=== PATIENT | female | born 1995 | race Caucasian/White ===

== ENCOUNTER 2016-03-24 12:49 | Emergency (ER) | payer OTHER ==
[~2016-03-24] VITALS: Ht 157.5 cm; Wt 78.0 kg
[~2016-03-24 12:49] MED LIST: ACET325T33 PO
[2016-03-24 13:29] VITALS: Ht 157.5 cm; Wt 78.0 kg
[2016-03-24] MEDS ORDERED: SOD CHLORIDE 0.9% 1,000 ML IV STA (15:26)
[2016-03-24] MEDS ORDERED: ONDANSETRON 4 MG INJ IV STA (15:26)
[2016-03-24] MEDS ORDERED: ACETAMINOPHEN 500 MG TAB PO STA (15:27)
[2016-03-24 15:57] LABS: BASOPHILS % 0.4 % (0.0-2.0); EOSINOPHILS % 0.2 % (0.0-7.0); HEMATOCRIT 38.9 % (37.0-47.0); HEMOGLOBIN 13.2 g/dl (12.0-16.0); LYMPHOCYTES # 0.6 10^3/ul (0.8-2.9); LYMPHOCYTES % 5.2 % (15.0-51.0); MEAN CORPUSCULAR HEMOGLOBIN 28.9 pg (29.0-33.0); MEAN CORPUSCULAR VOLUME 84.8 fl (82.0-101.0); MEAN PLATELET VOLUME 8.6 fl (7.4-10.4); MONOCYTE # 0.6 10^3/ul (0.3-0.9); MONOCYTES % 5.7 % (0.0-11.0); NEUTROPHILS % 88.5 % (39.0-77.0); PLATELET COUNT 199 10^3/UL (140-440); RED BLOOD COUNT 4.59 10^6/ul (4.20-5.40); UNCORRECTED WBC 11.3 10^3/ul (4.8-10.8); WHITE BLOOD COUNT 11.3 10^3/ul (4.8-10.8)
[2016-03-24 15:58] LABS: CONDITION 1
[2016-03-24 16:26] LABS: ALBUMIN 4.1 g/dl (3.3-4.9)
[2016-03-24 16:27] LABS: POTASSIUM 3.6 mmol/L (3.5-5.1)
[2016-03-24 16:29] LABS: ALBUMIN/GLOBULIN RATIO 1.17; BILIRUBIN,INDIRECT 0.5 mg/dl (0-1.1); BILIRUBIN,TOTAL 0.5 mg/dl (0.2-1.3); CREATININE 0.46 mg/dl (0.44-1.00); TOTAL PROTEIN 7.6 g/dl (6.1-8.1)
[2016-03-24 16:30] LABS: CALCIUM 9.3 mg/dl (8.4-10.2)
[2016-03-24 16:32] LABS: ADD UMIC YES; URINE BILIRUBIN (Dip) 1+ (NEGATIVE); URINE BLOOD (Dip) 2+ (NEGATIVE); URINE COLOR YELLOW (YELLOW); URINE GLUCOSE (Dip) NEGATIVE (NEGATIVE); URINE KETONES (Dip) 3+ (NEGATIVE); URINE LEUKOCYTE ESTERASE (Dip) TRACE (NEGATIVE); URINE NITRITE (Dip) NEGATIVE (NEGATIVE); URINE TOTAL PROTEIN (Dip) 1+ (NEGATIVE); URINE UROBILINOGEN (Dip) 1.0 E.U./dL (0.1-1.0)
[2016-03-24 16:43] LABS: ICTOTEST NEGATIVE (NEGATIVE)
[2016-03-24 16:45] LABS: BACTERIA,URINE FEW; SQUAMOUS EPITHELIAL CELL,UR FEW; URINE RBCS 0-2 /HPF (0)
[2016-03-24 18:04] VITALS: BP 101/76; PULSE 96; RESP 14; TEMP 98.5
[2016-03-24] MEDS ORDERED: METO10TA92 PO (18:04)
[2016-03-24] MEDS ORDERED: ACET325T33 PO (18:04)
--- NOTE | 2016-03-24 18:09 | ERD ---
ER Documentation Chief Complaint Date/Time DATE: 03/24/16 TIME: 18:05 Chief Complaint AP, nausea and vomiting 17 weeks . HPI Patient is a 21-year-old female she is 17 weeks she is . She developed generalized abdominal pain last night she describes the pain as a ripping pressure sensation. She has had nonbilious nonbloody nausea and vomiting for 1 day, she vomited fluid 2 times. She had diarrhea that started last night, and some nonbloody watery diarrhea. She has no UTI symptoms no cough no sore throat no vaginal bleeding no pelvic pain. Doctor is Dr. Del Toro. No past medical history no allergies no medication ROS All systems reviewed and are negative except as per history of present illness. Medications Home Meds Active Scripts Metoclopramide* (Reglan*) 10 Mg Tablet, 10 MG PO Q6 Y for NAUSEA AND/OR VOMITING , #10 TAB Prov:ELMA HICKMAN DO 03/24/16 Acetaminophen* (Tylenol*) 325 Mg Tablet, 2 TAB PO Q8 Y for PAIN AND OR ELEVATED TEMP, #20 TAB Prov:ELMA HICMKAN DO 03/24/16 Acetaminophen* (Tylenol*) 325 Mg Tablet, 2 TAB PO Q8 Y for PAIN AND OR ELEVATED TEMP, #20 TAB Prov:KARMA HADDAD MD 01/29/16 Allergies Allergies: Coded Allergies: No Known Drug Allergy (Verified Allergy, Unknown, 11/26/15) PMhx/Soc History of Surgery: Yes (TONSILLECTOMY; CHOLEY) Anesthesia Reaction: No Hx Neurological Disorder: No Hx Respiratory Disorders: No Hx Cardiac Disorders: No Hx Psychiatric Problems: No Hx Miscellaneous Medical Probl: No Hx Alcohol Use: No Hx Substance Use: No Hx Tobacco Use: No Physical Exam Vitals Vital Signs Date Time Temp Pulse Resp B/P Pulse Ox O2 Delivery O2 Flow Rate FiO2 03/24/16 18:04 98.5 96 14 101/76 98 03/24/16 13:29 97.9 103 18 100/60 100 Physical Exam Const: [] Head: Atraumatic Eyes: Normal Conjunctiva ENT: Normal External Ears, Nose and Mouth. Neck: Full range of motion..~ No meningismus. Resp: Clear to auscultation bilaterally Cardio: Regular rate and rhythm, no murmurs Abd: Soft, non tender, non distended. Normal bowel sounds Skin: No petechiae or rashes Back: No midline or flank tenderness Ext: No cyanosis, or edema Neur: Awake and alert Psych: Normal Mood and Affect Result Diagram: 03/24/16 1533 03/24/16 1533 Results 24 hrs Laboratory Tests Test 03/24/16 15:33 Alanine Aminotransferase (ALT/SGPT) 27IU/L Albumin 4.1g/dl Albumin/Globulin Ratio 1.17 Alkaline Phosphatase 69IU/L Anion Gap 19 Aspartate Amino Transf (AST/SGOT) 24IU/L Basophils # 0.010^3/ul Basophils % 0.4% Blood Morphology Comment Blood Urea Nitrogen 8mg/dl Calcium Level 9.3mg/dl Carbon Dioxide Level 23mmol/L Chloride Level 101mmol/L Creatinine 0.46mg/dl Direct Bilirubin 0.00mg/dl Eosinophils # 0.010^3/ul Eosinophils % 0.2% Globulin 3.50g/dl Glucose Level 93mg/dl Hematocrit 38.9% Hemoglobin 13.2g/dl Indirect Bilirubin 0.5mg/dl Lipase 26U/L Lymphocytes # 0.610^3/ul Lymphocytes % 5.2% Mean Corpuscular Hemoglobin 28.9pg Mean Corpuscular Hemoglobin Concent 34.0g/dl Mean Corpuscular Volume 84.8fl Mean Platelet Volume 8.6fl Monocytes # 0.610^3/ul Monocytes % 5.7% Neutrophils # 10.010^3/ul Neutrophils % 88.5% Nucleated Red Blood Cells # 0.010^3/ul Nucleated Red Blood Cells % 0.0/100WBC Platelet Count 67832^3/UL Potassium Level 3.6mmol/L Red Blood Count 4.5910^6/ul Red Cell Distribution Width 14.0% Sodium Level 139mmol/L Total Bilirubin 0.5mg/dl Total Protein 7.6g/dl Urine Bacteria FEW Urine Bilirubin 1+ Urine Clarity SLIGHTLY CLOUDY Urine Color YELLOW Urine Glucose NEGATIVE% Urine Hemoglobin 2+ Urine Ictotest NEGATIVE Urine Ketones 3+ Urine Leukocyte Esterase TRACE Urine Microscopic RBC 0-2/HPF Urine Microscopic WBC 0-2/HPF Urine Nitrite NEGATIVE Urine Specific [place] >=1.030 Urine Squamous Epithelial Cells FEW Urine Total Protein 1+ Urine Urobilinogen 1.0 E.U./dL Urine pH 5.5 White Blood Count 11.310^3/ul Current Medications Medications (Trade) Dose Ordered Sig/Shyam Route PRN Reason Start Time Stop Time Status Last Admin Dose Admin Sodium Chloride (NS) 1,000 ml @ 1,000 mls/hr Q1H STAT IV 03/24/16 15:26 03/24/16 16:25 DC 03/24/16 15:57 Ondansetron HCl (Zofran Inj) 4 mg ONCE STAT IV 03/24/16 15:26 03/24/16 15:27 DC 03/24/16 15:56 Acetaminophen (Tylenol Tab) 1,000 mg ONCE STAT PO 03/24/16 15:27 03/24/16 15:28 DC 03/24/16 15:56 Procedures/MDM We gave her nausea medication IV fluids and Tylenol and she felt better and she appeared better. Mild leukocytosis is likely from the stress reaction of the vomiting and diarrhea. Her labs are otherwise normal so I doubt cholangitis cholecystitis or appendicitis or diverticulitis that she does not have abdominal tenderness to palpation. This is likely a viral gastroenteritis as she has nausea vomiting and diarrhea. Urine did show 3+ ketones and high specific gravity consistent with dehydration and we did give her IV fluids. There was no nitrates or white blood cells but there was trace leukocyte Estrace so we will send for urine culture but she had no UTI symptoms I did not give her antibiotics. Less likely be cholangitis cholecystitis choledocholithiasis cholecystitis diverticulitis small bowel obstruction or appendicitis or pyelonephritis or UTI. She did not have any pelvic pain or vaginal bleeding so I did not do a OB ultrasound. To follow with her PCP and tennis desk team member in the ED precautions discussed. Departure Diagnosis: Primary Impression: Abdominal pain Abdominal location: generalized Qualified Code: R10.84 - Generalized abdominal pain Additional Impressions: Nausea vomiting and diarrhea Weeks of gestation: 17 weeks Qualified Code: Z3A.17 - 17 weeks gestation of Dehydration Condition: Stable Patient Instructions: Diet, Vomiting Or Diarrhea [6Yr-Adult], Abdominal Pain, Early , Gastroenteritis, Viral (6Y-Adult) Referrals: COMMUNITY CLINICS YOU HAVE RECEIVED A MEDICAL SCREENING EXAM AND THE RESULTS INDICATE THAT YOU DO NOT HAVE A CONDITION THAT REQUIRES URGENT TREATMENT IN THE EMERGENCY DEPARTMENT. FURTHER EVALUATION AND TREATMENT OF YOUR CONDITION CAN WAIT UNTIL YOU ARE SEEN IN YOUR DOCTORS OFFICE WITHIN THE NEXT 1-2 DAYS. IT IS YOUR RESPONSIBILITY TO MAKE AN APPOINTMENT FOR FOLOW-UP CARE. IF YOU HAVE A PRIMARY DOCTOR --you should call your primary doctor and schedule an appointment IF YOU DO NOT HAVE A PRIMARY DOCTOR YOU CAN CALL OUR PHYSICIAN REFERRAL HOTLINE AT IF YOU CAN NOT AFFORD TO SEE A PHYSICIAN YOU CAN CHOSE FROM THE FOLLOWING [facility] [address] [facility] [address] [facility] [address] [facility] [address] [facility] [address] [facility]. [facility] [address] [facility]. [facility] YOU HAVE RECEIVED A MEDICAL SCREENING EXAM AND THE RESULTS INDICATE THAT YOU DO NOT HAVE A CONDITION THAT REQUIRES URGENT TREATMENT IN THE EMERGENCY DEPARTMENT. FURTHER EVALUATION AND TREATMENT OF YOUR CONDITION CAN WAIT UNTIL YOU ARE SEEN IN YOUR DOCTORS OFFICE WITHIN THE NEXT 1-2 DAYS. IT IS YOUR RESPONSIBILITY TO MAKE AN APPOINTMENT FOR FOLOW-UP CARE. IF YOU HAVE A PRIMARY DOCTOR --you should call your primary doctor and schedule and appointment IF YOU DO NOT HAVE A PRIMARY DOCTOR YOU CAN CALL OUR PHYSICIAN REFERRAL HOTLINE AT . IF YOU CAN NOT AFFORD TO SEE A PHYSICIAN YOU CAN CHOSE FROM THE FOLLOWING [facility] IN[facility]IONS: [facility] [address] [place] [address] [facility] [address] [place] [address] [facility] [address] [place] [address] ELMA HICKMAN DO Mar 24, 2016 18:09
== END 2016-03-24 18:11 | disposition home or self-care (01) ==
LOC: FTE 12:49
DX: O26.892 Other specified pregnancy related conditions, second trimester (principal); R10.84 Generalized abdominal pain; E86.0 Dehydration; O99.284 Endocrine, nutritional and metabolic diseases complicating childbirth; Z3A.17 17 weeks gestation of pregnancy
CPT/HCPCS: 36415; 80053; 81001; 83690; 85025; 87086; 96374; J2405; J7030; Z7502; Z7610; 81003

== ENCOUNTER 2018-09-20 18:20 | Inpatient (IN) | payer MEDICAID, OTHER ==
[~2018-09-20] VITALS: Ht 157.5 cm; Wt 89.6 kg
[~2018-09-20 18:20] MED LIST changes: +METO10TA92 PO
[2018-09-20 19:00] VITALS: Ht 157.5 cm; Wt 89.6 kg
[2018-09-20 19:20] VITALS: BP 108/55; PULSE 110; RESP 18
[2018-09-21] MEDS ORDERED: CEFAZOLIN 2 GM/50 ML (PMX) 50 ML IVPB STA (00:11)
[2018-09-21] MEDS: LACTATED RINGER'S 1,000 ML IV SCH ×4 (01:03→19:06)
[2018-09-21] MEDS: BETAMET NA PHOS/AC(6 MG/ML) 2 ML INJ SYG IM SCH (02:06)
[2018-09-21] MEDS ORDERED: ACETAMINOPHEN 325 MG TAB PO PRN (03:00)
[2018-09-21] MEDS ORDERED: AL HYDROX/MG HYDROX/SIMETH 30 ML CUP PO PRN (03:00)
[2018-09-21] MEDS ORDERED: NIFEdipine 10 MG CAP PO ONE (03:00)
--- NOTE | 2018-09-21 05:47 | TRIAGE ---
OB Triage Datetime Report Generated by CPN: 09/21/2018 05:46 Datetime: 09/21/2018 04:12 Stage of : Antepartum Maternal Assessment Level of Consciousness: Keenly Alert, Responsive Headache: Denies Blurred Vision: No Respiratory Effort: Unlabored Breath Sounds, Left: Clear and Equal Breath Sounds, Right: Clear and Equal Nausea/Vomiting: Denies RUQ Epigastric Pain: Denies Facial Edema: None Labor Evaluation Frequency: 4-6 Monitor Mode: External Duration (sec)2399: 50-60 Quality: Mild Pattern: Normal: <= 5 Contractions in 10 Minutes Resting Tone [place]: Relaxed Pain Assessment Pain Scale: 2 Pain Presence: Intermittent Pain Type: Dull; Ache Pain Goal: 2 Vaginal Exam Membrane Status: Intact Datetime: 09/21/2018 02:59 Stage of : Antepartum Maternal Assessment Level of Consciousness: Keenly Alert, Responsive Headache: Denies Blurred Vision: No Respiratory Effort: Unlabored Breath Sounds, Left: Clear and Equal Breath Sounds, Right: Clear and Equal Nausea/Vomiting: Denies RUQ Epigastric Pain: Denies Labor Evaluation Frequency: 5 Monitor Mode: External Duration (sec)2399: 50-60 Quality: Moderate Pattern: Normal: <= 5 Contractions in 10 Minutes Resting Tone [place]: Relaxed Pain Assessment Pain Scale: 4 Pain Presence: Intermittent Pain Type: Cramping; Dull; Ache Pain Location: Abdomen Pain Goal: 2 Pain Relief Measures: Comfort Measures Vaginal Exam Membrane Status: Intact Datetime: 09/21/2018 01:49 Stage of : Antepartum Maternal Assessment Level of Consciousness: Keenly Alert, Responsive DTR's/Clonus: DTRs 2+ Headache: Denies Blurred Vision: No Respiratory Effort: Unlabored Breath Sounds, Left: Clear and Equal Breath Sounds, Right: Clear and Equal Nausea/Vomiting: Denies RUQ Epigastric Pain: Denies Facial Edema: None Labor Evaluation Frequency: 3-6 Monitor Mode: External Duration (sec)2399: 50-60 Quality: Moderate Pattern: Normal: <= 5 Contractions in 10 Minutes Resting Tone [place]: Relaxed Pain Assessment Pain Scale: 5 Pain Presence: Intermittent Pain Type: Cramping; Dull; Ache Pain Location: Abdomen Pain Goal: 2 Pain Relief Measures: Comfort Measures Pain Assessment Comments: MOTHER OF PT AT BEDSIDE Vaginal Exam Membrane Status: Intact Datetime: 09/21/2018 00:05 Monitor Mode: External Datetime: 09/20/2018 23:39 Vaginal Exam Membrane Status: Intact Datetime: 09/20/2018 19:53 Time of Arrival: 09/20/2018 17:49 EGA: 33.0 Arrived By: Ambulatory Arrived From: Home Chief Complaint: sent from the clinic for ultrasound Movement: Present Contractions: Denies/Absent Rupture of Membranes: Denies Vaginal Bleeding: None Vaginal Discharge: Denies Recent Sexual Intercouse: Denies Abdominal Trauma: Not Applicable Patient Complaints: None Time Provider Notified: 09/20/2018 19:25 Provider Notified: hadadian Initial Plan: EFMiguel Angel, MELINDA MICHAEL
[2018-09-21] MEDS: NIFEdipine 10 MG CAP PO SCH ×4 (08:59→22:11)
[2018-09-21] MEDS ORDERED: INSULIN ASPART [NOVOLOG] 3 ML PEN SC SCH (12:00)
[2018-09-21] MEDS ORDERED: GLUCOSE GEL 15 GRAM TUBE BUCCAL PRN (17:00)
[2018-09-21] MEDS ORDERED: GLUCOSE GEL 15 GRAM TUBE PO PRN ×2 (17:00)
[2018-09-21] MEDS ORDERED: DEXTROSE 50% 50 ML SYRINGE IV PRN ×2 (17:00)
[2018-09-21] MEDS ORDERED: GLUCAGON 1 MG INJ IM PRN (17:00)
--- NOTE | 2018-09-21 19:26 | CONS ---
Consultation Date/Type/Reason Admit Date/Time Sep 20, 2018 at 23:25 Date of Consultation: Sep 21, 2018 Type of Consult Medicine Reason for Consultation Requested by Dr. Martinez to certified alcohol and drug counselor mother regarding anticipated course and outcomes encountered with at 33 wks of twin gestation complicated by gestational diabetes. Mother is a 23 yo [id number] with EDC 11/08/2018 (EGA 33 1/7 wks). complicated by monochorionic-diamniotic twin gestation and gestational diabetes, diet-controlled. Mother presented 09/20 in labor with intact membranes. Has received Ancef X 1, Procardia q 4 hrs, and Betamethasone X 1. BPP each twin 10/26. Met with mother and discussed very high survival rate at this gestation. Explained that admission to NICU required and initial course may be complicated by respiratory insufficiency requiring some form of assistance especially in view of maternal diabetes despite having received full course of steroids. Reviewed issues regarding feedings and early requirement for IV nutrition slowly replaced with enteral gavage feedings and finally nipple feedings. Briefly discussed apnea of prematurity and requirement for cardiorespiratory stability prior to discharge. Discussed briefly infection and possibility of antibiotics. Discussed possibility of prison subtle neurologic disturbances which are highly variable at this gestation. Mother appeared to understand. Assured mother of availability should further questions arise. Date/Time of Note DATE: 09/21/18 TIME: 18:56 Past Medical History Home Meds Active Scripts Metoclopramide* (Reglan*) 10 Mg Tablet, 10 MG PO Q6 PRN for NAUSEA AND/OR VOMITING, #10 TAB Prov:ELMA HICKMAN DO 03/24/16 Acetaminophen* (Tylenol*) 325 Mg Tablet, 2 TAB PO Q8 PRN for PAIN AND OR ELEVATED TEMP, #20 TAB Prov:ELMA HICKMAN DO 03/24/16 Acetaminophen* (Tylenol*) 325 Mg Tablet, 2 TAB PO Q8 PRN for PAIN AND OR ELEVA MABEL TEMP, #20 TAB Prov:KARMA HADDAD MD 01/29/16 Medications Current Medications Lactated Ringer's 1,000 ml @ 125 mls/hr Q8H IV Last administered on 09/21/18at 11:12; Admin Dose 125 MLS/HR; Start 09/21/18 at 00:11 Betamethasone Acet/Betameth SodPhos (Celestone Soluspan) 12 mg Q24H IM Last administered on 09/21/18at 02:06; Admin Dose 12 MG; Start 09/21/18 at 00:30; Stop 09/22/18 at 00:31 Acetaminophen (Tylenol Tab) 650 mg Q6H PRN PO MILD PAIN(1-3)OR ELEVATED TEMP; Start 09/21/18 at 03:00 Al Hydrox/Mg Hydrox/Simethicone (Mag-Al Plus) 30 ml Q6H PRN PO GASTROINTESTINAL UPSET; Start 09/21/18 at 03:00 Nifedipine (Procardia) 10 mg Q4 PO Last administered on 09/21/18at 17:47; Admin Dose 10 MG; Start 09/21/18 at 09:00 Insulin Aspart (Novolog Insulin Pen) 60-12,0=0 units 121-14... WITH MEALS SC ; Start 09/21/18 at 17:35 Miscellaneous Information 1 ea NOTE XX ; Start 09/21/18 at 17:00 Glucose (Glutose) 15 gm Q15M PRN PO DECREASED GLUCOSE; Start 09/21/18 at 17:00 Glucose (Glutose) 22.5 gm Q15M PRN PO DECREASED GLUCOSE; Start 09/21/18 at 17:00 Dextrose (D50w Syringe) 25 ml Q15M PRN IV DECREASED GLUCOSE; Start 09/21/18 at 17:00 Dextrose (D50w Syringe) 50 ml Q15M PRN IV DECREASED GLUCOSE; Start 09/21/18 at 17:00 Glucagon (Glucagen) 1 mg Q15M PRN IM DECREASED GLUCOSE; Start 09/21/18 at 17:00 Glucose (Glutose) 15 gm Q15M PRN BUCCAL DECREASED GLUCOSE; Start 09/21/18 at 17:00 Allergies: Coded Allergies: No Known Allergy (Unverified , 09/21/18) Social History Smoking Status: Never smoker Exam/Review of Systems Exam Vitals Vital Signs Date Temp Pulse Resp B/P (MAP) Pulse Ox O2 O2 Flow FiO2 Time Delivery Rate 09/20/18 98.1 110 18 108/55 Room Air 19:20 (72) Intake and Output 09/20/18 09/20/18 09/21/18 1515:00 23:00 07:00 IntakeIntake Total 1360 ml OutputOutput Total 600 ml BalanceBalance 760 ml Results Result Diagram: 09/21/18 0725 09/21/18 0725 Results 24hrs Laboratory Tests Test 09/20/18 21:30 09/21/18 06:51 09/21/18 07:25 09/21/18 12:08 Urine Color [place]AR[place] Urine Clarity SLIGHTLY CLOUDY A Urine pH 5.0 Urine Specific 1.026 [place] Urine Ketones NEGATIVE Urine Nitrite NEGATIVE Urine Bilirubin NEGATIVE Urine NEGATIVE Urobilinogen Urine Leukocyte NEGATIVE Esterase Urine Microscopic 5 RBC Urine Microscopic 3 WBC Urine Squamous FEW Epithelial Cells Urine Calcium FEW A Oxalate Crystals Urine Bacteria FEW A Urine Mucus MANY A Urine Hemoglobin NEGATIVE Urine Glucose NEGATIVE Urine Total 1+ H Protein Lab Scanned REFERENCE LAB Report White Blood Count 13.1 H Red Blood Count 3.54 #L Hemoglobin 9.1 #L Hematocrit 27.1 #L Mean Corpuscular 76.6 L Volume Mean Corpuscular 25.7 L Hemoglobin Mean Corpuscular 33.6 Hemoglobin Concen t Red Cell 13.2 Distribution Width Platelet Count 221 Mean Platelet 11.2 #H Volume Immature 0.800 H Granulocytes % Neutrophils % 88.2 H Lymphocytes % 8.7 L Monocytes % 2.1 Eosinophils % 0.0 Basophils % 0.2 Nucleated Red 0.0 Blood Cells % Immature 0.100 H Granulocytes # Neutrophils # 11.6 H Lymphocytes # 1.1 Monocytes # 0.3 Eosinophils # 0.0 Basophils # 0.0 Nucleated Red 0.0 Blood Cells # Glucose Level 116 Bedside Glucose 122 Test 09/21/18 15:31 Bedside Glucose 133 Medications Medication Current Medications Lactated Ringer's 1,000 ml @ 125 mls/hr Q8H IV Last administered on 09/21/18at 11:12; Admin Dose 125 MLS/HR; Start 09/21/18 at 00:11 Betamethasone Acet/Betameth SodPhos (Celestone Soluspan) 12 mg Q24H IM Last administered on 09/21/18at 02:06; Admin Dose 12 MG; Start 09/21/18 at 00:30; Stop 09/22/18 at 00:31 Acetaminophen (Tylenol Tab) 650 mg Q6H PRN PO MILD PAIN(1-3)OR ELEVATED TEMP; Start 09/21/18 at 03:00 Al Hydrox/Mg Hydrox/Simethicone (Mag-Al Plus) 30 ml Q6H PRN PO GASTROINTESTINAL UPSET; Start 09/21/18 at 03:00 Nifedipine (Procardia) 10 mg Q4 PO Last administered on 09/21/18at 17:47; Admin Dose 10 MG; Start 09/21/18 at 09:00 Insulin Aspart (Novolog Insulin Pen) 60-12,0=0 units 121-14... WITH MEALS SC ; Start 09/21/18 at 17:35 Miscellaneous Information 1 ea NOTE XX ; Start 09/21/18 at 17:00 Glucose (Glutose) 15 gm Q15M PRN PO DECREASED GLUCOSE; Start 09/21/18 at 17:00 Glucose (Glutose) 22.5 gm Q15M PRN PO DECREASED GLUCOSE; Start 09/21/18 at 17:00 Dextrose (D50w Syringe) 25 ml Q15M PRN IV DECREASED GLUCOSE; Start 09/21/18 at 17:00 Dextrose (D50w Syringe) 50 ml Q15M PRN IV DECREASED GLUCOSE; Start 09/21/18 at 17:00 Glucagon (Glucagen) 1 mg Q15M PRN IM DECREASED GLUCOSE; Start 09/21/18 at 17:00 Glucose (Glutose) 15 gm Q15M PRN BUCCAL DECREASED GLUCOSE; Start 09/21/18 at 17:00 NEY JIMENEZ MD Sep 21, 2018 19:26
[2018-09-21] MEDS: INSULIN ASPART [NOVOLOG] 3 ML PEN SC SCH (22:03)
--- NOTE | 2018-09-21 22:37 | HP ---
Date/Time of Note Date/Time of Note DATE: 09/21/18 TIME: 22:30 OB - History Hx of Present Free Text/Dictation October 17, 2018 : 3 Para: 2 Care: Good Care Other Concerns: 23-year-old G3, P2 with IUP at 32 weeks and 6 days and twin gestation, monodi- twin and care with Dr. Suarez Hadadian presented to triage with complaint of contractions. She was noted to have contractions every 4 to 5 mi nutes. Patient denies any leaking of fluid, vaginal bleeding or decreased movement. Patient reports pain with contractions she rates her pain 4 out of 10. Patient was admitted due to painful contractions and due to short cervix. Cervical length 2.4 cm. Due to risk of labor patient was admitted for observation and possible tocolysis due to painful contractions. records are not available. Past Family/Social History * Past Medical, Surgical, Family and Obstetric Histories reviewed from chart. OB Admission Exam Vital Signs Vital Signs Vital Signs Date Temp Pulse Resp B/P (MAP) Pulse Ox O2 O2 Flow FiO2 Time Delivery Rate 09/20/18 98.1 110 18 108/55 Room Air 19:20 (72) Physical Exam HEENT: WNL Heart: Rhythm Normal Lungs: Clear Abdomen: WNL (Size larger than dates correlate with twin gestation, abdomen gravid.) Extremities: Normal Cervical Dilatation: None Effacement: 0% Station: -3 Membranes: Intact Heart Rate: 130's Accelerations: Accelerations Present Decelerations: No Decelerations Varibility: Moderate Contractions on Admission: < 5 Minutes Apart Intensity: Moderate Last 72 hourBlood Glucose Bedside Glucose - 72 Hours Test 09/21/18 12:08 09/21/18 15:31 09/21/18 19:44 Bedside Glucose 122 mg/dL (70-220) 133 mg/dL (70-220) 107 mg/dL (70-220) Last 72 hours Lab Results Urine Results - 72 Hrs Test 09/20/18 21:30 Urine Color FARAZ (YELLOW) Urine Clarity SLIGHTLY CLOUDY (CLEAR) Urine pH 5.0 (5.0-9.0) Urine Specific [place] 1.026 (1.003-1.030) Urine Ketones NEGATIVE mg/dL (NEGATIVE) Urine Nitrite NEGATIVE mg/dL (NEGATIVE) Urine Bilirubin NEGATIVE mg/dL (NEGATIVE) Urine Urobilinogen NEGATIVE mg/dL (NEGATIVE) Urine Leukocyte Esterase NEGATIVE Jaswinder/ul Urine Microscopic RBC 5 /HPF (0-5) Urine Microscopic WBC 3 /HPF (0-5) Urine Squamous Epithelial Cells FEW /HPF (FEW) Urine Calcium Oxalate Crystals FEW /HPF (NONE SEEN) A Urine Bacteria FEW /HPF (NONE SEEN) A Urine Mucus MANY /HPF (NONE SEEN) A Urine Hemoglobin NEGATIVE mg/dL (NEGATIVE) Urine Glucose NEGATIVE mg/dL (NEGATIVE) Urine Total Protein 1+ mg/dl (NEGATIVE) H CBC & BMP 09/21/18 07:25 PROCEDURE: US OB. CLINICAL INDICATION: LABOR . For cervical length. TECHNIQUE: Multiple sonographic images of the pelvis were obtained. The images were reviewed on a PACS workstation. COMPARISON: OB ultrasound same date FINDINGS: The cervix measures 2.2 cm in length and is closed. IMPRESSION: Cervical length 2.2 cm. OB Assessment/Plan Other Assessment: Twin gestation. IUP at 32 weeks and 6 days Pinal/Di painful contractions Cervical length 2.2, short at risk for labor Discussed with the patient regarding steroid for lung maturity due to risk of delivery Start nifedipine 10 mg 4 times daily particular lysis Ancef for GBS prophylaxis Perinatology/neonatology consultation Expectant management with above plan SINDHU RAYGOZA MD Sep 21, 2018 22:37
[2018-09-22] MEDS: NIFEdipine 10 MG CAP PO SCH ×3 (01:00→11:55)
[2018-09-22] MEDS: BETAMET NA PHOS/AC(6 MG/ML) 2 ML INJ SYG IM SCH (02:17)
[2018-09-22] MEDS: LACTATED RINGER'S 1,000 ML IV SCH ×2 (03:06→11:59)
[2018-09-22] MEDS: INSULIN ASPART [NOVOLOG] 3 ML PEN SC SCH ×3 (11:58→20:19)
[2018-09-22] MEDS: MAGNESIUM SULFATE 20 GM/500 ML 500 ML IV SCH (16:12)
[2018-09-23] MEDS: LACTATED RINGER'S 1,000 ML IV SCH ×2 (00:10→10:19)
--- NOTE | 2018-09-23 04:18 | CONS ---
DATE OF ADMISSION: 09/20/2018 DATE OF CONSULTATION: 09/22/2018 HISTORY OF PRESENT ILLNESS: The patient is a G3, P2 at 33 weeks and 2 days, twin intrauterine pregna ncy, presented with complaint of contractions. Cervical length was 2.2 cm. She had been giv en Procardia 10 mg every 4 hours per her primary OB and placed on the betamethasone; however, she cou ld not tolerate the Procardia, so the Procardia had been stopped. She is continuing to have some con tractions. OBSTETRIC HISTORY: Not significant. REVIEW OF SYSTEMS: Reviewed, all negative. PHYSICAL EXAMINATION: VITAL SIGNS: Stable. Physical examination deferred. heart tones reassuring. Contractions: Irregular contractions. IMPRESSION: Twin intrauterine at 33 weeks and 2 days status post Procardia, has been given betamethasone, continues to have some contractions. RECOMMENDATIONS: Magnesium sulfate for 24 hours. Discontinue magnesium sulfate tomorrow. Reevaluat e a few hours later. If she is comfortable, no contractions, no cervical change, she can be discharg ed home with labor precautions and follow up with perinatology within 1 to 2 weeks. Dictated By: MAE DALE MD ST/NTS Conf#: [id number] DID#: [id number] CC: CHERI GAYTAN MD;*EndCC*
[2018-09-23] MEDS: MAGNESIUM SULFATE 20 GM/500 ML 500 ML IV SCH ×2 (04:29→13:30)
[2018-09-23] MEDS: INSULIN ASPART [NOVOLOG] 3 ML PEN SC SCH ×3 (11:50→20:30)
--- NOTE | 2018-09-23 14:45 | DS ---
Date/Time of Note Date/Time of Note DATE: 09/23/18 TIME: 14:45 Obstetrical Discharge Record Final Diagnosis Final Diagnosis: not delivered Other Final Diagnosis Subjective: Patient without complaints. . Objective: Vital signs within normal limits. H/H: 9 0.1/27.1 General: No apparent distress. Demented: Gravid Extremities nontender to palpation. Nonpitting edema bilaterally Assessment/plan: 1. [place] with testing. Comanagement with MFM. Ultrasound for estimated weight and TRISH every 2 weeks. Status post betamethasone. Status post magnesium sulfate for 24 hours. Discharge to home if no contractions after 2 hours post mag sulfate discontinuation and no change in cl on US. 2. Short cervix2.2 cm. expectant. 3. History of deliverycontinue vaginal progesterone 4. Anemia of pregnancyferrous sulfate Disposition: Follow-up Tuesday Condition on Discharge Physical Assessment Patient Condition: Stable MILESTONE,KAILA MICHAEL Sep 23, 2018 14:45
== END 2018-09-24 14:29 | disposition home or self-care (01) | DRG 832 ==
LOC: OBT 18:20 → L-D 18:23 → OBT 23:25 → L-D 23:25 → PP1 09-22 16:05
PROVIDERS: ADMIT Obstetrics & Gynecology; ATTEND Obstetrics & Gynecology
DX: O24.419 Gestational diabetes mellitus in pregnancy, unspecified control (principal); O26.873 Cervical shortening, third trimester; O30.003 Twin pregnancy, unspecified number of placenta and unspecified number of amniotic sacs, third trimester; O99.013 Anemia complicating pregnancy, third trimester; Z3A.33 33 weeks gestation of pregnancy
CPT/HCPCS: 76815; 76817; 76818; 81001; 82947; 82962; 83735; 85025; 86850; 86900; 86901; 87086; G0463; J0690; J0702; J1815; J3475; J7120

== ENCOUNTER 2018-10-04 18:38 | Inpatient (IN) | payer OTHER ==
[~2018-10-04] VITALS: Ht 157.5 cm; Wt 88.6 kg
[2018-10-04 20:40] VITALS: Ht 157.5 cm; Wt 88.6 kg
[2018-10-04 20:41] VITALS: BP 110/66; PULSE 94; RESP 20
[2018-10-04] MEDS ORDERED: PREN-93 PO (20:48)
[2018-10-05] MEDS: LACTATED RINGER'S 1,000 ML IV SCH ×2 (02:25→07:33)
[2018-10-05] MEDS ORDERED: ACCU-CHEK XX SCH (06:00)
[2018-10-05] MEDS ORDERED: PRENATAL VITAMIN PO SCH (09:00)
--- NOTE | 2018-10-05 10:27 | HP ---
Date/Time of Note Date/Time of Note DATE: 10/05/18 TIME: 10:24 OB - History Hx of Present Free Text/Dictation October 04, 2018 : 3 Para: 2 Other Concerns: 23-year-old G3, P2 with IUP at 35 weeks and 1 day and twin gestation presented with complaint of contractions. She denies any leaking of fluid, vaginal bleeding or decreased movement. presentation vertex/transverse. Patient had been following by NST/BPP twice a week due to during gestation. She was noted to have variable deceleration down to 80s and fetus B during monitoring and observation in triage and for that reason she was admitted for observation and close monitoring to antepartum service. Tracing for fetus a category 1 and reassuring. Fetus B shows episodes of recurrent occasional variable deceleration. Patient's cramps and contraction resolved after hydration. She remained asymptomatic. She denies any urinary symptoms. She was admitted for prolonged observation. Past Family/Social History * Past Medical, Surgical, Family and Obstetric Histories reviewed from chart. OB Admission Exam Vital Signs Vital Signs Vital Signs Date Temp Pulse Resp B/P (MAP) Pulse Ox O2 O2 Flow FiO2 Time Delivery Rate 10/04/18 98.2 94 20 110/66 Room Air 20:41 (81) Physical Exam HEENT: WNL Lungs: Clear Abdomen: WNL Extremities: Normal Effacement: 0% Station: -3 Membranes: Intact Heart Rate: 130's Accelerations: Accelerations Present Decelerations: Variable Decelerations Varibility: Moderate Contractions on Admission: >10 Minutes Apart Intensity: Mild Last 72 hourBlood Glucose Bedside Glucose - 72 Hours Test 10/04/18 22:24 10/05/18 07:50 Bedside Glucose 93 mg/dL (70-220) 84 mg/dL (70-220) PROCEDURE: US OB biophysical profile. CLINICAL INDICATION: decreased movements , PTL TECHNIQUE: Multiple sonographic images of the pelvis were obtained. The images were reviewed on a PACS workstation. COMPARISON: No prior studies are available for comparison. FINDINGS: There is a twin live intrauterine gestation. Twin A Cardiac activity is present with 156 beats per minute. There is a vertex presentation. The placenta is anterior. MVP = 3.9 cm Biophysical profile: movement 2/2 tone 2/2. breathing 2/2 TRISH 2/2 Total 8/8 Twin B Cardiac activity is present with 137 beats per minute. There is a transverse maternal presentation. The placenta is anterior. MVP = 4.7 cm Biophysical profile: movement 2/2 tone 2/2. breathing 2/2 TRISH 2/2 Total 10/26 RPTAT: AA . IMPRESSION: Normal biophysical profile for twin gestation . . .Damion Lamar MD, MD Date Time Electronically viewed and signed by .Damion Lamar MD, on 10/04/2018 21:22 .S/ CC: CHERI GAYTAN [phone] Last 72 hours Lab Results CBC & BMP 10/05/18 02:25 OB Assessment/Plan Other Assessment: IUP at 35 weeks and 1 day Twin gestation contraction, resolved after hydration Recurrent episodes of occasional variable deceleration and twin B Patient will be admitted for prolonged monitoring and observation Perinatology consultation tomorrow Plan of care discussed with the patient and with SINDHU DOUGHERTY MD Oct 05, 2018 10:27
--- NOTE | 2018-10-05 14:41 | QN ---
Documentation Comment Patient denies any complaint. Comfortable. Denies any leaking of fluid, vaginal bleeding decreased movement or uterine contractions. Physical examination: General appears alert and oriented x4 does not appear to be in any acute distress Abdomen: Soft, gravid, fundal height larger than gestational age correlates with twin gestation NST reviewed for both fetuses reactive and category 1. No evidence of distal since last night noted during observation. Tracing reviewed with Dr. Engel the perinatologist who agreed with discharging the patient with a follow-up in 3 days and continue biweekly NST/BPP in triage Patient has her perinatologist with Dr. Henriquez. She will have a follow-up with the perinatologist as outpatient as well but she agreed to continue doing testing twice a week in the hospital and follow-up with the OB clinic for planning for date Strict labor precaution, kick count discussed with the patient. Patient verbalized understanding. She agreed to comply with instructions. Return to triage in 3 days for NST/BPP SINDHU RAYGOZA MD Oct 05, 2018 14:41
== END 2018-10-05 16:11 | disposition home or self-care (01) | DRG 833 ==
LOC: OBT 18:38 → L-D 18:42 → OBT 10-05 00:10 → L-D 10-05 00:10 → PP1 10-05 11:23
PROVIDERS: ADMIT Obstetrics & Gynecology; ATTEND Obstetrics & Gynecology
DX: O60.03 Preterm labor without delivery, third trimester (principal); Z3A.35 35 weeks gestation of pregnancy; O30.003 Twin pregnancy, unspecified number of placenta and unspecified number of amniotic sacs, third trimester
CPT/HCPCS: 76815; 76818; 81001; 82962; 85025; 85610; 85730; 86592; 86850; 86900; 86901; 87086; G0463; J7120

== ENCOUNTER 2018-10-11 13:10 | Outpatient (CLI) | payer OTHER ==
[~2018-10-11] VITALS: Ht 157.5 cm; Wt 89.3 kg
[~2018-10-11 13:10] MED LIST changes: -ACET325T33 PO; -METO10TA92 PO; +PREN-93 PO
[2018-10-11 13:36] VITALS: Ht 157.5 cm; Wt 89.3 kg
--- NOTE | 2018-10-11 16:11 | TRIAGE ---
OB Triage Datetime Report Generated by CPN: 10/11/2018 16:11 Datetime: 10/11/2018 14:03 Heart Rate FHR Baseline Rate: 150 Monitor Mode: External US Variability: Moderate 6-25 bpm Accelerations: 15X15 Decelerations: None Category: Category I Datetime: 10/11/2018 14:02 Stage of : OB Triage Labor Evaluation Frequency: 2 n 20 minutes Resting Tone [place]: Relaxed Contraction Comments: pt denies feeling UC's Pain Assessment Pain Presence: None/Denies Pain Type: N/A Datetime: 10/11/2018 13:39 Monitor Mode: External Monitor Mode: External US Datetime: 10/11/2018 13:34 Time of Arrival: 10/11/2018 12:59 EGA: 36.0 Arrived By: Ambulatory Arrived From: Home Chief Complaint: PT. HERE FOR NST/BPP FOR TWINS AND GDM. Movement: Present Contractions: Denies/Absent Rupture of Membranes: Denies Vaginal Bleeding: None Vaginal Discharge: Denies Recent Sexual Intercouse: Denies Abdominal Trauma: Not Applicable Patient Complaints: None Time Provider Notified: 10/11/2018 13:30 Provider Notified: HADADIAN Initial Plan: NST/BPPx 2/ Datetime: 10/08/2018 13:21 EGA: 35.4 Datetime: 10/08/2018 13:20 Fall Risk Assessment Fall Score: 0 Fall Risk Score Definition: No Risk: No action required Datetime: 10/05/2018 01:40 Fall Risk Assessment Fall Score: 0 Fall Risk Score Definition: No Risk: No action required Datetime: 10/04/2018 19:57 Fall Risk Assessment Fall Score: 0 Fall Risk Score Definition: No Risk: No action required Datetime: 10/04/2018 19:49 EGA: 35.0 Datetime: 09/24/2018 09:09 Fall Risk Assessment Fall Score: 0 Fall Risk Score Definition: No Risk: No action required Datetime: 09/22/2018 19:18 Fall Risk Assessment Fall Score: 0 Fall Risk Score Definition: No Risk: No action required Datetime: 09/21/2018 19:30 Fall Risk Assessment Fall Score: 0 Fall Risk Score Definition: No Risk: No action required Datetime: 09/21/2018 07:47 Fall Risk Assessment Fall Score: 0 Fall Risk Score Definition: No Risk: No action required Datetime: 09/20/2018 19:53 EGA: 33.0 Datetime: 09/20/2018 19:20 Fall Risk Assessment Fall Score: 0 Fall Risk Score Definition: No Risk: No action required
--- NOTE | 2018-10-11 16:12 | PN ---
Triage Information Date/Time Reason for visit: Antepartum testing Weeks of Gestation 36 weeks /Para -1-0-2 Diabetes: none, gestational Hypertention: none Objective Heart Rate: 140's Contractions: >10 Minutes Apart Results/Medications Imaging Results There is a twin live intrauterine gestation. Twin A Cardiac activity is present with 142 beats per minute. There is a vertex presentation. The placenta is anterior. MVP = 4.1 cm Biophysical profile: movement 2/2 tone 2/2. breathing 2/2 TRISH 2/2 Total 10/26 Twin B Cardiac activity is present with 136 beats per minute. There is a transverse maternal left presentation. The placenta is anterior. MVP = 10.4 cm Biophysical profile: movement 2/2 tone 2/2. breathing 2/2 TRISH 2/2 Total 10/26 RPTAT: AA . IMPRESSION: Normal biophysical profile for twin gestation . . .Damion Lamar MD, MD Date Time Electronically viewed and signed by .Damion Lamar MD, on 10/11/2018 15:48 .S/ Disposition: Discharge Assessment/Plan 23 years old with single intrauterine at 36 weeks with a CAMRYN of 11/08/2018 with twin gestation and gestational diabetes A1 present for antepartum testing. She states good movements. She denies nausea, vomiting, shortness of breath, chest pain, headache, visual changes, vaginal bleeding or LOF. -FHR: No sign of metabolic acidosis- Category I -Contractions: Occasional, she is comfortable with those -Ultrasound performed: Normal TRISH, BPP 8 out of 8 -Symptoms and sign of labor, preeclampsia, kick count discussed with patient, she voiced understanding. All of her questions answered. -Patient was discharged home in stable condition with the appropriate discharge instructions provided. I would like patient to have close follow-up with her primary physician or outpatient clinic in 1-2 days or return to triage for worsening symptoms or any other urgent concerns. CHERI GAYTAN Oct 11, 2018 16:12
== END 2018-10-11 16:05 | disposition home or self-care (01) ==
LOC: OBT 13:10 → L-D 13:11 → OBT 16:05
PROVIDERS: ATTEND Obstetrics & Gynecology
DX: O24.419 Gestational diabetes mellitus in pregnancy, unspecified control (principal); Z3A.36 36 weeks gestation of pregnancy
CPT/HCPCS: 76818; Z7500; G0463

== ENCOUNTER 2018-10-16 14:19 | Outpatient (CLI) | payer OTHER ==
[~2018-10-16] VITALS: Ht 157.5 cm; Wt 89.0 kg
[2018-10-16 15:11] VITALS: Ht 157.5 cm; Wt 89.0 kg
[2018-10-16 15:12] VITALS: BP 99/53; PULSE 93; RESP 18
--- NOTE | 2018-10-16 15:40 | TRIAGE ---
OB Triage Datetime Report Generated by CPN: 10/16/2018 15:40 Datetime: 10/16/2018 15:10 Assessment Type: Triage Maternal Assessment Level of Consciousness: Keenly Alert, Responsive DTR's/Clonus: DTRs 2+; No Clonus Headache: Denies Blurred Vision: No Respiratory Effort: Unlabored; Regular Rhythm; Equal Expansion Breath Sounds, Left: Clear and Equal Breath Sounds, Right: Clear and Equal Nausea/Vomiting: Denies RUQ Epigastric Pain: Denies Lower Extremities Edema: None Degree: None Upper Extremities Edema: None Degree: None Facial Edema: None Fall Risk Assessment History of Falling: (0) No Secondary Diagnosis: (0) No Ambulatory Aid: (0) Bedrest/Nurse Assist IV Therapy: (0) No Gait: (0) Normal/Bedrest/Immobile Mental Status: (0) Oriented to Own Ability Fall Score: 0 Fall Risk Score Definition: No Risk: No action required Datetime: 10/16/2018 15:09 Time of Arrival: 10/16/2018 14:15 EGA: 36.5 Arrived By: Ambulatory Arrived From: Home Chief Complaint: PT. HERE FOR NST/BPP FOR TWIN GEST AND GDM Movement: Present Contractions: Denies/Absent Rupture of Membranes: Denies Vaginal Bleeding: None Vaginal Discharge: Denies Recent Sexual Intercouse: Denies Abdominal Trauma: Not Applicable Patient Complaints: None Time Provider Notified: 10/16/2018 15:30 Provider Notified: MILESTONE Initial Plan: NST/BPPX2 Datetime: 10/16/2018 15:03 Labor Evaluation Monitor Mode: External Heart Rate Monitor Mode: External US Datetime: 10/11/2018 13:34 EGA: 36.0 Datetime: 10/08/2018 13:21 EGA: 35.4 Datetime: 10/08/2018 13:20 Fall Score: 0 Fall Risk Score Definition: No Risk: No action required Datetime: 10/05/2018 01:40 Fall Score: 0 Fall Risk Score Definition: No Risk: No action required Datetime: 10/04/2018 19:57 Fall Score: 0 Fall Risk Score Definition: No Risk: No action required Datetime: 10/04/2018 19:49 EGA: 35.0 Datetime: 09/24/2018 09:09 Fall Score: 0 Fall Risk Score Definition: No Risk: No action required Datetime: 09/22/2018 19:18 Fall Score: 0 Fall Risk Score Definition: No Risk: No action required Datetime: 09/21/2018 19:30 Fall Score: 0 Fall Risk Score Definition: No Risk: No action required Datetime: 09/21/2018 07:47 Fall Score: 0 Fall Risk Score Definition: No Risk: No action required Datetime: 09/20/2018 19:53 EGA: 33.0 Datetime: 09/20/2018 19:20 Fall Score: 0 Fall Risk Score Definition: No Risk: No action required
--- NOTE | 2018-10-16 15:46 | PN ---
Triage Information Date/Time Reason for visit: Weeks of Gestation 36 /Para 3/2 Objective Vital Signs Date Temp Pulse Resp B/P (MAP) Pulse Ox O2 O2 Flow FiO2 Time Delivery Rate 10/16/18 98.3 93 18 99/53 (68) Room Air 15:12 Assessment/Plan Subjective: 23 year-old at 36 weeks gestation presents for BPP/NST for mono/di twin gestation. Objective: Vitals: stable General: nad Abdomen: Gravid Electronic moniter: Category 1 x 2 BPP 10/26 Assessment/Plan: 1. mono/di-for elective cs at 36.2 wga Disposition: KAILA ALBERT MD Oct 16, 2018 15:46
== END 2018-10-16 15:50 | disposition home or self-care (01) ==
LOC: OBT 14:19 → L-D 14:20 → OBT 15:50
PROVIDERS: ATTEND Obstetrics & Gynecology
DX: O30.033 Twin pregnancy, monochorionic/diamniotic, third trimester (principal); Z3A.36 36 weeks gestation of pregnancy
CPT/HCPCS: 76818; G0463

== ENCOUNTER 2018-10-18 05:12 | Inpatient (IN) | payer OTHER ==
[~2018-10-18] VITALS: Ht 157.5 cm; Wt 89.8 kg
[2018-10-18 05:22] VITALS: Ht 157.5 cm; Wt 89.8 kg
[2018-10-18] MEDS ORDERED: CEFAZOLIN 2 GM/50 ML (PMX) 50 ML IVPB SCH (05:30)
[2018-10-18] MEDS ORDERED: AZITHROMYCIN 500MG/NS (PMX) 250 ML IV SCH (05:30)
[2018-10-18] MEDS ORDERED: CARBOPROST 250 MCG INJ IM PRN ×2 (05:30→10:00)
[2018-10-18] MEDS ORDERED: MISOPROSTOL 200 MCG TAB PR PRN ×2 (05:30→10:00)
[2018-10-18] MEDS ORDERED: METHYLERGONOVINE 0.2 MG INJ IM PRN ×2 (05:30→10:00)
[2018-10-18] MEDS ORDERED: OXYTOCIN 30 UNITS/LR 500 ML IV SCH ×2 (05:30→09:33)
[2018-10-18] MEDS ORDERED: OXYTOCIN 30 UNITS/LR 500 ML IV PRN ×2 (05:30→10:00)
[2018-10-18] MEDS: LACTATED RINGER'S 1,000 ML IV SCH ×3 (06:05→23:04)
[2018-10-18] MEDS ORDERED: morphine SULFATE/PF (10 MG/10 ML) INJ ONE (07:30)
[2018-10-18] MEDS ORDERED: OXYTOCIN 10 UNIT INJ ONE (07:30)
[2018-10-18] MEDS ORDERED: ONDANSETRON 4 MG INJ ONE (07:30)
[2018-10-18] MEDS ORDERED: PHENYLephrine 10 MG INJ ONE (07:51)
--- NOTE | 2018-10-18 07:54 | PREAC ---
Date/Time of Note Date/Time of Note DATE: 10/18/18 TIME: 07:46 Anesthesia Eval and Record Evaluation Time Pre-Procedure Interview DATE: 10/18/18 TIME: 07:46 Age 23 Sex female NPO: 8 hrs Preoperative diagnosis IUP/ twines Planned procedure Csection Past Medical History Past Medical History: Includes Endo: Diabetes GI: Morbid obesity : :, Twin Surgery & Anesthesia Issues No known issue Meds Anticoagulation: No Beta Frederick within 24 hr: No Reason Beta Frederick not given: Pt. not on B-Frederick Reported Medications Vit No.124/Iron/FA ( Vitamin Tablet) 1 Each Tablet, 1 EACH PO DAILY, TAB 10/04/18 Current Medications Lactated Ringer's 1,000 ml @ 125 mls/hr Q8H IV Last administered on 10/18/18at 06:57; Admin Dose 125 MLS/HR; Start 10/18/18 at 05:17 Cefazolin Sodium/ Dextrose 50 ml @ 100 mls/hr ONCE IVPB ; Start 10/18/18 at 05:30 Oxytocin/Lactated Ringer's 500 ml @ 125 mls/hr POST IV ; Start 10/18/18 at 05:30 Azithromycin 250 ml @ 250 mls/hr ONCE IV ; Start 10/18/18 at 05:30 Oxytocin/Lactated Ringer's 500 ml @ 0 mls/hr ONCE PRN IV .VAGINAL BLEEDING; Start 10/18/18 at 05:30 Methylergonovine Maleate (Methergine) 0.2 mg ONCE PRN IM .VAGINAL BLEEDING; Start 10/18/18 at 05:30 Carboprost Tromethamine (Hemabate) 250 mcg ONCE PRN IM .VAGINAL BLEEDING; Start 10/18/18 at 05:30 Misoprostol (Cytotec) 1,000 mcg ONCE PRN NH .VAGINAL BLEEDING; Start 10/18/18 at 05:30 Meds reviewed: Yes Allergies Coded Allergies: No Known Allergy (Unverified , 10/18/18) Allergies Reviewed: Yes Labs/Studies Labs Reviewed: Reviewed by anesthesiologist Result Diagram: 10/18/1841 10/18/1841 Laboratory Tests 10/18/18 05:41 Blood Bank Test 10/18/18 05:41 Antibody Screen NEGATIVE Blood Type A POSITIVE Rh Immune Globulin Candidate NO test: Positive Studies: ECG Pre-procedure Exam Last vitals BP:122/67, P:76, Spo2:100%, T:98,8 Airway: Adequate mouth opening, Adequate thyromental dist Mallampati: Mallampati II Teeth: Normal Lung: Normal Heart: Normal ASA Physical Status ASA physical status: 3 Emergency: None Planned Anesthetic Neuraxial: Spinal Planned Pain Management Sub-arachniod narcotics, Parenteral pain med Pre-operative Attestations Prior to commencing anesthesia and surgery, the patient was re-evaluated, there was verification of: *The patient's identity *The results of appropriate recent lab work and preoperative vital signs *The above evaluation not changing prior to induction *Anesthetic plan, risk benefits, alternative and complications discussed with patient/family; questions answered; patient/family understands, accepts and wishes to proceed. FLAKITO JOHNSON MD Oct 18, 2018 07:54
[2018-10-18] MEDS ORDERED: METOCLOPRAMIDE 10 MG INJ ONE (08:23)
--- NOTE | 2018-10-18 08:52 | PAC ---
Date/Time of Note Date/Time of Note DATE: 10/18/18 TIME: 08:47 Post-Anesthesia Notes Post-Anesthesia Note Activity: WNL Respiratory function: WNL Cardiovascular function: WNL Mental status: Baseline Pain reasonably controlled: Yes Hydration appropriate: Yes Nausea/Vomiting absent: Yes Comments BP:112/56, P:78, Spo2:100%, T:98,8 FLAKITO JOHNSON MD Oct 18, 2018 08:52
[2018-10-18] MEDS ORDERED: NALOXONE (0.4 MG/ML) INJ IV PRN (09:00)
[2018-10-18] MEDS ORDERED: DIPHENHYDRAMINE 50 MG INJ IV PRN (09:00)
[2018-10-18] MEDS ORDERED: ONDANSETRON 4 MG INJ IV PRN (09:00)
[2018-10-18] MEDS ORDERED: KETOROLAC 30 MG INJ IV PRN (09:00)
[2018-10-18] MEDS ORDERED: morphine 2 MG INJ IV PRN (09:00)
--- NOTE | 2018-10-18 09:33 | OPR ---
Operative Report Planned Procedure Procedure date Oct 18, 2018 Procedure(s) and bilateral salpingectomy Performed by see signature line Control Technician: NESS ALTAMIRANO MD Pre-procedure diagnosis mono/di twin labor [id number] Anesthesia Type: [id number] spinal Post-Procedure Post-procedure diagnosis same Findings Live Baby [], Apgars [] and [], weight [], position [], [] presentation []cord. Estimated Blood Loss: 600 - 700 mls Specimen(s) none Grafts/Implant(s) none Complication(s) none Pt Condition post procedure: stable Procedure Description Pre-Operative Diagnosis: 1. 23 year old at 36.2 weeks with Black[place]/Di twin gestation 2. labor 3. Undesired fertility 4. GMDA1 Post-Operative Diagnosis: Same Procedure(s): Low transverse section and right salpingectomy and left partial salpingectomy Surgeon: Dr. Ren Control Technician: Dr. Altamirano Anesthesia: Spinal Findings: A, male in OA presentation weighing 2780 g with Apgars of 9 and 9 at 1 and 5; B male in OA presentation weighing 2665 g with Apgars of 8 and 9 at 1 and 5 minutes respectively. Nuchal cord x 1. Normal appearing tubes and ovaries. Placenta intact with 3VC. Description of Procedure: After assuring informed consent, the patient was taken to the operating room where spinal anesthesia was initiated. The patient was placed in the dorsal, supine position with left lateral tilt. Sequential compression devices were placed on the patient's lower extre mities and activated prior to the beginning of the procedure. A pepe catheter was placed in the bladder prior to the beginning of the procedure. Surgical pause identified the patient and procedure; all parties were in agreement. Cefazolin and Azithromycin were administered prior to the beginning of the procedure. The patient's abdomen was prepped and draped in sterile fashion. An Allis skin test was performed to ensure adequate anesthesia. A Pffannenstiel skin incision was made using a scalpel and carried down through to the level of the fascia. The fascia was incised in the midline and extended laterally with sharp dissection using Heredia scissors. The fascial incision was grasped with Gabriella clamps, elevated, and bluntly dissected superiorly to the level of the umbilicus and inferiorly to the level of the pubic symphysis from the rectus muscles. The rectus muscles were then in the midline, and the peritoneum was tented up and entered bluntly Metzenbaum scissors. The peritoneal incision was extended superiorly and inferiorly with good visualization of the bladder. The peritoneum was then identified and entered bluntly. A bladder blade was then inserted, and the vesicouterine fold identified. The bladder was retracted using the bladder blade. A hysterotomy was made in a ow transverse fashion using a scalpel and extended bilaterally with blunt dissection. Amniotomy was performed and fluid was noted to be clear. The bladder blade was then revmoved. A's head was then grasped, elevated to the level of the incision and delivered atraumatically in OA presentation, followed by the body which was delivered without difficulty. The was suctioned, cord clamped x 2 and cut. was handed to the nursing staff. Cord blood was collected. Infant B's head was then grasped, elevated to the level of the incision and delivered atraumatically in OA presentation after a nuchal cord x 1 was reduced, followed by the body which was delivered without difficulty. The was suctioned, cord clamped x 2 and cut. was handed to the nursing staff. The placenta was expressed manually. The uterus was exteriorized and cleared of all clots and debris. The uterine incision was repaired with 0-monocryl in a running locking fashion. A second layer of 0-monocryl was utilizied to ensure excellent hemostasis. Attention was then turned to the tubal portion of the case. The right fallopian tube was identified and followed out to the fimbriated end. Using the Voyant device, the right fallopian tube was sealed and transected in entirety. Next the left fallopian tube was identified and followed ou tto the fimbriated end. The tube was grasped in the mid-isthmic portion and fimbriated end with two kimber clamps and two 0 plain gut free ties were used to suture ligate the tube. The tubal segment was excised and lumen was noted to be in the specimen sent to pathology. The tubal edges were hemostatic. The specimens were sent to pathology. The tubal edges were noted to be hemostatic. Reinspection of the hysterotomy revealed good hemostasis. The uterus was returned to the abdomen. The uterine incision was noted to be hemostatic. The peritoneum and rectus bellies were reappxomiated with 2-0 monocryl. The fascia was reapproximated with 0- monocryl. The subcutaneous tissue was closed with 2-0 monocryl in a two layer fashion. The skin was reapproximated using 3-0 monocryl. Dermabond was placed. All counts were correct x 2 at the end of the procedure. Estimated Blood Loss: 700 ml; no blood replaced Drains: Pepe catheter with clear urine at end of procedure Fluids Given: 1800 ml Specimens/ Cultures: cord blood, right fallopian tube, left fallopian tube segment Implants: None Complications: None Disposition: PACU - hemodynamically stable. Condition: stable Indications: Blackford/Di twin gestation at 36 2/7 weeks in labor at 5 cm 90% effacement KAILA REN MD Oct 18, 2018 09:32
--- NOTE | 2018-10-18 09:35 | HP ---
Date/Time of Note Date/Time of Note DATE: 10/18/18 TIME: 09:33 OB - History Hx of Present Free Text/Dictation Refer to written H&P 23 yo at 36 2/7 wga with mono/di twin gestation, gdma1 in active labor pmh/psh/sh/fh unchanged from records sve /0 soft/mid efm cat 1 x 2 toco q 2 min patient desires elective section consented for section and bilateral salpingectomy Past Family/Social History * Past Medical, Surgical, Family and Obstetric Histories reviewed from chart. OB Admission Exam Last 72 hours Lab Results CBC & BMP 10/18/18 05:41 MILESTONE,KAILA MICHAEL Oct 18, 2018 09:35
[2018-10-18] MEDS ORDERED: NA PHOSPHATE/BIPHOS 133 ML ENEMA PR PRN (10:00)
[2018-10-18] MEDS ORDERED: NACL 0.9% 3 ML SYG IV SCH (10:00)
[2018-10-18] MEDS ORDERED: LANOLIN HPA 1 PKT TOP PRN (10:00)
[2018-10-18 13:50] VITALS: BP 106/50; RESP 18
[2018-10-18] MEDS: IBUPROFEN 600 MG TAB PO SCH ×2 (13:50→18:00)
[2018-10-18 14:15] VITALS: BP 110/56; RESP 18
[2018-10-18 16:00] VITALS: BP 101/64; PULSE 66; RESP 20
[2018-10-18 20:00] VITALS: BP 90/53; PULSE 80; RESP 18
[2018-10-19] VITALS: BP 88/69; PULSE 85; RESP 17
[2018-10-19 04:00] VITALS: BP 93/51; PULSE 88; RESP 19
[2018-10-19] MEDS: LACTATED RINGER'S 1,000 ML IV SCH ×3 (05:17→21:17)
[2018-10-19] MEDS: IBUPROFEN 600 MG TAB PO SCH ×4 (06:00→17:55)
--- NOTE | 2018-10-19 07:38 | QN ---
Documentation Comment s/p c/s Subjective: no complaint Objective: Afebrile, VSS NAD A&O Abdomen: soft, appropriate tender Incision: no sign of bleeding/infection mild lochia Extremity: 1+ edema bilaterally Assessment: S/p C/S for twin gestations and bilateral salpingectomies. Postop day #1. CBC is pending at this time Recovering Well Plan: current care NESS CONNOLLY MD Oct 19, 2018 07:38
--- NOTE | 2018-10-19 07:50 | PN ---
Date/Time of Note Date/Time of Note DATE: 10/19/18 TIME: 07:49 OB Subjective Subjective Subjective Subjective: Tolerating crackers. has not ambulated. no flauts. pain well controlled. no nausea or vomiting. breast feeding. Hosptial day: 2 Complaints: none Mode of delivery: Contraception: Right salpingectomy left partial salpingectomy Objective: General: No apparent distress Breast: Normal Fundus: 2 fingerbreadths below the umbilicus Extremities: Nontender to palpation Incision: dressing in place. dry Assessment/plan: 1. day 1 from a section, right salpingectomy left partial salpingectomy from-routine pp care. 2. GDMA1-check 2 h pp OB Objective Objective Objective Vital Sign - Last 24 Hours 10/18/18 10/18/18 10/18/18 10/18/18 13:50 14:15 16:00 20:00 Temp 98.2 98.0 98.1 98.3 Pulse 66 80 Resp 18 18 20 18 B/P (MAP) 106/50 (68) 110/56 (74) 101/64 (76) 90/53 (65) Pulse Ox 100 97 O2 Delivery Room Air Room Air Room Air 10/19/18 10/19/18 00:00 04:00 Temp 98.7 98.8 Pulse 85 88 Resp 17 19 B/P (MAP) 88/69 (75) 93/51 (65) Pulse Ox 95 97 O2 Delivery Room Air Intake and Output 10/18/18 10/18/18 10/19/18 1515:00 23:00 07:00 IntakeIntake Total 995 ml 50 ml OutputOutput Total 782 ml 400 ml 1700 ml BalanceBalance 213 ml -350 ml -1700 ml VS - Last 72 Hours, by Label Date Temp Pulse Resp B/P (MAP) Pulse Ox O2 O2 Flow FiO2 Time Delivery Rate 10/19/18 98.8 88 19 93/51 (65) 97 Room Air 04:00 10/19/18 98.7 85 17 88/69 (75) 95 00:00 10/18/18 98.3 80 18 90/53 (65) 97 Room Air 20:00 10/18/18 98.1 66 20 101/64 100 Room Air 16:00 (76) 10/18/18 98.0 18 110/56 14:15 (74) 10/18/18 98.2 18 106/50 Room Air 13:50 (68) Laboratory Tests Test 10/18/18 05:41 Glucose Level 86 mg/dl Hematocrit 29.8 % Hemoglobin 9.7 g/dl Platelet Count 258 10^3/UL White Blood Count 10.0 10^3/ul KAILA ALBERT MD Oct 19, 2018 07:50
[2018-10-19] MEDS ORDERED: OXYCODONE/ACETAMINOPHEN (5/325) TAB PO PRN ×2 (08:00)
[2018-10-19 08:30] VITALS: BP 101/65; PULSE 62; RESP 18
[2018-10-19] MEDS: ASCORBIC ACID 500 MG TAB PO SCH ×2 (10:09→21:55)
[2018-10-19] MEDS: FERROUS SULFATE (EC) 325 MG TAB PO SCH ×2 (10:10→21:55)
[2018-10-19 17:16] VITALS: BP 101/62; PULSE 81; RESP 18
[2018-10-19 20:45] VITALS: BP 100/61; PULSE 74; RESP 18
[2018-10-20] MEDS: IBUPROFEN 600 MG TAB PO SCH ×5 (00:44→23:35)
[2018-10-20 04:00] VITALS: BP 89/54; PULSE 73; RESP 18
[2018-10-20] MEDS: LACTATED RINGER'S 1,000 ML IV SCH ×2 (05:17→13:17)
[2018-10-20 08:00] VITALS: BP 107/69; PULSE 68; RESP 19
[2018-10-20] MEDS: ASCORBIC ACID 500 MG TAB PO SCH ×2 (09:16→20:33)
[2018-10-20] MEDS: FERROUS SULFATE (EC) 325 MG TAB PO SCH ×2 (09:16→20:33)
[2018-10-20 16:00] VITALS: BP 109/67; PULSE 70; RESP 19; RESP 20
[2018-10-20 19:45] VITALS: BP 107/61; RESP 19
--- NOTE | 2018-10-20 20:28 | QN ---
Documentation Comment Had bm ambulating well abdomen soft wound dry calf neg for tenderness ext edematous reassure the pt A S/P Pc/s for twin gestation stable P as ordered NITO BECKER MD Oct 20, 2018 20:28
[2018-10-21 03:20] VITALS: BP 106/60; PULSE 74; RESP 19
[2018-10-21] MEDS: IBUPROFEN 600 MG TAB PO SCH ×2 (05:32→12:04)
[2018-10-21 08:00] VITALS: BP 97/55; PULSE 61; RESP 18
[2018-10-21] MEDS: FERROUS SULFATE (EC) 325 MG TAB PO SCH (08:59)
[2018-10-21] MEDS: ASCORBIC ACID 500 MG TAB PO SCH (08:59)
[2018-10-21] MEDS ORDERED: MEASLES,MUMPS,RUBELLA VACCINE INJ SC* ONE (09:00)
[2018-10-21] MEDS ORDERED: DIPHTH/TET/ACEL PERTUSS (ADULT) 0.5 ML VIAL IM* ONE (09:00)
--- NOTE | 2018-10-22 15:36 | DELSUM ---
Delivery Summary A-C Datetime Report Generated by CPN: 10/22/2018 15:36 DELIVERY PERSONNEL Agricultural Equipment Mechanic: Dandre, Soila MATERNAL INFORMATION Delivery Anesthesia: Spinal Medications in Delivery: SEE ANESTHESIA RECORD Delivery QBL (ml): 700 Placenta Cultured: No Maternal Complications: None RN Comments: Antonina Scrub student Neptali Mar and Earl Frazier from [employer] LABOR SUMMARY EDC: 11/08/2018 00:00 No. Babies in Womb: 1 Attempted: No Labor Anesthesia: None LABOR INFORMATION Reason for Induction: Not Applicable Group B Beta Strep: Negative Antibiotics # of Doses: Ancef 2grams 0735/Azythromycin Antibiotics Time of Last Dose: 10/18/2018 07:40 Steroids Given: None Reason Steroids Not Administered: Not Applicable MEMBRANES Membranes Rupture Method: Artificial Rupture of Membranes: 10/18/2018 07:59 Length of Rupture (hr): 0.00 Amniotic Fluid Color: Clear Amniotic Fluid Amount: Moderate Amniotic Fluid Odor: None STAGES OF LABOR Stage 3 hr: -167 Stage 3 min: -57 CSECTION DELIVERY Primary Indication: Multiple Gestation Other Primary Indication: Twins Secondary Indication: Other Other Secondary Indication: labor CSection Urgency: Elective CSection Incidence: Primary Labor: Labor Elective: Elective CSection Incision: Lower Uterine Transverse BABY A INFORMATION Infant Delivery Date/Time: 10/18/2018 07:59 Method of Delivery: Born in Route : No : N/A Forceps: N/A Vacuum Extraction: N/A Shoulder Dystocia : N/A SHOULDER DYSTOCIA BABY A Delivery Date/Time: 10/18/2018 07:59 PRESENTATION/POSITION BABY A Presentation: Cephalic Cephalic Presentation: Vertex Vertex Position: Right Occipital Anterior Breech Presentation: N/A PLACENTA INFORMATION BABY A Placenta Delivery Time : 10/11/2018 08:02 Placenta Method of Delivery: Manual Removal Placenta Status: Delivered SCORES BABY A Heart Rate 1 min: >100 bpm Resp Effort 1 min: Good Cry Reflex Irritability 1 min: Cough/Sneeze/Pulls Away Muscle Tone 1 min: Active Motion Color 1 min: Blue/Pale Resuscitation Effort 1 min: Tactile Stimulation SCORE 1 MIN: 8 Heart Rate 5 min: >100 bpm Resp Effort 5 min: Good Cry Reflex Irritability 5 min: Cough/Sneeze/Pulls Away Muscle Tone 5 min: Active Motion Color 5 min: Body [place], Extremit Blue Resuscitation Effort 5 min: Tactile Stimulation SCORE 5 MIN: 9 INFANT INFORMATION BABY A Gestational Age at Delivery: 37.0 Gestational Status: Early Term- 37- 38.6 Weeks Infant Outcome : Liveborn, with signs of life Condition : Stable Infant Sex: Male IDENTIFICATION/MEDS BABY A ID Band Number: [id number] ID Band Location: Right Leg; Left Arm Sensor Applied: Yes Sensor Number: [id number] Sensor Location : Cord Clamp Erythromycin Given: Not Given WEIGHT/LENGTH BABY A Infant Birthweight (gm): 2780 Infant Weight (lb): 6 Weight (oz): 2 Length (in): 19.00 Length (cm): 48.26 CORD INFORMATION BABY A No. Cord Vessels: 3 Nuchal Cord : N/A Cord Blood Taken: Yes Suction: Mouth; Nose ASSESSMENT BABY A Infant Complications: None Physical Findings at Delivery: Within Normal Limits Physical Findings- Other: blue/purple devlin noted across chest Respirations: Appears Normal Hydrocrane Operator/ALS Called : No Care By: Kimberly DOZIER/Mary Ellen RT Transferred To: Remains with Mother BABY B INFORMATION Delivery Date/Time: 10/18/2018 08:00 Method of Delivery : Born in Route : No : N/A Forceps : N/A Vacuum Extraction: N/A Shoulder Dystocia : N/A SHOULDER DYSTOCIA BABY B Delivery Date/Time: 10/18/2018 08:00 PRESENTATION/POSITION BABY B Presentation : Cephalic Cephalic Position : Vertex Vertex Position: Left Occipital Posterior Breech Position: N/A ROM/PLACENTA INFO BABY B Rupture of Membranes: 10/18/2018 08:00 Length of Rupture (hr): 0.00 Placenta Delivery Time : 10/18/2018 08:02 Placenta Method of Delivery: Manual Removal Placental Status : Delivered SCORES BABY B Heart Rate 1 min: >100 bpm Resp Effort 1 min: Good Cry Reflex Irritability 1 min: Cough/Sneeze/Pulls Away Muscle Tone 1 min: Active Motion Color 1 min: Blue/Pale Resuscitation Effort 1 min: Tactile Stimulation SCORE 1 MIN: 8 Heart Rate 5 min: >100 bpm Resp Effort 5 min: Good Cry Reflex Irritability 5 min: Cough/Sneeze/Pulls Away Muscle Tone 5 min: Active Motion Color 5 min: Body [place], Extremit Blue Resuscitation Effort 5 min: Tactile Stimulation SCORE 5 MIN: 9 INFORMATION BABY B Gestational Age at Delivery: 37.0 Gestational Status : Early Term- 37- 38.6 Weeks Outcome : Liveborn, with signs of life Condition : Stable Sex : Male IDENTIFICATION/MEDS BABY B ID Band Number : [id number] ID Band Location : Right Leg; Left Arm Sensor Applied: Yes Sensor Number : [id number] Sensor Location : Cord Clamp Vitamin K Given : Not Given Erythromycin Given : Not Given WEIGHT/LENGTH BABY B Birthweight (gm): 2665 Infant Weight (lb) : 5 Weight (oz): 14 Infant Length (in): 19.00 Length (cm): 48.26 CORD INFORMATION BABY B No. Cord Vessels : 3 Nuchal Cord : Around Neck x1, Loose Infant Suction : Mouth; Nose ASSESSMENT BABY B Complications : None Physical Findings at Delivery: Within Normal Limits Infant Respirations : Appears Normal Hydrocrane Operator/ALS Called : No Infant Care By : Jorgito DOZIER/Mary Ellen RT Transfer To: Remains with Mother
--- NOTE | 2018-10-26 02:44 | DS ---
Date/Time of Note Date/Time of Note DATE: 10/26/18 TIME: 02:43 Obstetrical Discharge Record Final Diagnosis Final Diagnosis: delivered Other Final Diagnosis Late entry note. Patient seen on 10/21/2018 23 year old at 36.2 weeks with [place] twin gestation underwent delivery without complication. She is doing well. course was unremarkable. She is ambulating and tolerating regular diet. She is voiding without difficulty. She discharged home in stable condition with follow-up with her primary OB in 1 week. Section Section: Primary (Twin gestation) Condition on Discharge Physical Assessment Voiding: Yes Bowel Movement: Yes Breast: Soft, non-tender Fundus: Firm Calf Tenderness: No Patient Condition: Stable CHERI GAYTAN Oct 26, 2018 02:44
== END 2018-10-21 15:36 | disposition home or self-care (01) | DRG 785 ==
LOC: L-D 05:12 → PP1 13:54
PROVIDERS: ADMIT Obstetrics & Gynecology; ATTEND Obstetrics & Gynecology
PROC: 0UT50ZZ Resection of Right Fallopian Tube, Open Approach (ICD-10-PCS; 2018-10-18)
PROC: 0UB60ZZ Excision of Left Fallopian Tube, Open Approach (ICD-10-PCS; 2018-10-18)
PROC: 10D00Z1 Extraction of Products of Conception, Low, Open Approach (ICD-10-PCS; principal; 2018-10-18 07:30)
DX: O60.14X2 Preterm labor third trimester with preterm delivery third trimester, fetus 2 (principal); O60.14X1 Preterm labor third trimester with preterm delivery third trimester, fetus 1; O30.033 Twin pregnancy, monochorionic/diamniotic, third trimester; O69.81X2 Labor and delivery complicated by cord around neck, without compression, fetus 2; O99.214 Obesity complicating childbirth; E66.01 Morbid (severe) obesity due to excess calories; O24.420 Gestational diabetes mellitus in childbirth, diet controlled; Z3A.36 36 weeks gestation of pregnancy; Z37.2 Twins, both liveborn; Z30.2 Encounter for sterilization
CPT/HCPCS: 82947; 82962; 85025; 85610; 85730; 86592; 86850; 86900; 86901; 88302; 88307; 99464; J0456; J0690; J2274; J2370; J2405; J2590; J2765; J7120